=== PATIENT | female | born 1980 ===

== ENCOUNTER 2017-01-23 12:58 | Emergency (ER) | payer OTHER ==
[2017-01-23 13:16] VITALS: O2SAT 100
--- NOTE | 2017-01-23 13:59 | C.PDOC ---
Time Seen by Provider: 01/23/17 13:48 Chief Complaint (Nursing): Back Pain Past Medical History Vital Signs: Last Vital Signs Temp 97.9 F 01/23/17 13:10 Pulse 78 01/23/17 13:10 Resp 18 01/23/17 13:10 BP 115/76 01/23/17 13:10 Pulse Ox 100 01/23/17 13:10 - Medical History PMH: Back Problems Surgical History: Appendectomy - Social History Hx Tobacco Use: No Hx Alcohol Use: No Hx Substance Use: No - Immunization History Hx Tetanus Toxoid Vaccination: No Hx Influenza Vaccination: No Hx Pneumococcal Vaccination: No ED Course And Treatment O2 Sat by Pulse Oximetry: 100 Disposition - Disposition
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
[2017-01-23 15:44] LABS: RBC URINE 1 /hpf (0-3); URINE BACTERIA RARE (<OCC); URINE BILIRUBIN NEGATIVE (NEGATIVE); URINE BLOOD NEGATIVE (NEGATIVE); URINE COLOR Yellow (YELLOW); URINE GLUCOSE (UA) NORMAL (Normal); URINE KETONE NEGATIVE (NEGATIVE); URINE LEUKOCYTE ESTERASE NEG Leu/uL (Negative); URINE PROTEIN NEGATIVE (NEGATIVE); URINE UROBILINOGEN NORMAL mg/dL (0.2-1.0); WBC URINE 1 /hpf (0-5)
[2017-01-23 15:57] VITALS: BP 114/77; PULSE 74; RESP 20; TEMP 97.7
== END 2017-01-23 15:59 | disposition home or self-care (01) ==
LOC: C.ER 12:58
DX: S39.012A Strain of muscle, fascia and tendon of lower back, initial encounter (principal); W18.40XA Slipping, tripping and stumbling without falling, unspecified, initial encounter; Y93.01 Activity, walking, marching and hiking